=== PATIENT | male | born 1970 | race Caucasian/White ===

== ENCOUNTER 2021-11-09 19:34 | Emergency (ER) | payer SELFPAY ==
[~2021-11-09] VITALS: Ht 185.4 cm; Wt 113.4 kg
[2021-11-09 19:39] VITALS: BP 128/74
--- NOTE | 2021-11-09 19:44 | NUR ---
BIBA TAKEN TO BED #7
--- NOTE | 2021-11-09 20:32 | NUR ---
51 YO M BIBA FROM STREETS C/O ATLERED. UNKNOWN IF BEHAVIORAL OR DRUGS/ETOH. PT FOUND LOOKIGN THROUGH [employer]. PT SELECTIVELY ANSWERS QUESTIONS. PT HAD A CALM DEMEANOR,AFTER A FEW QUESTION PT BEGAN SPEAKING AND ACTING AGGRESSIVE. PT DENIES THOUGHTS OF HURTING SELF AND OTHERS. PT STATES "IM JUST IN A BAD STATE RIGHT NOW YOUT KNOW". ASKED PT ABOUT DRUG AND ALCOHOL USE, PT STATES "YEAH I DO ALL THAT GOOD STUFF". PT DENIES HX, RX AND ALLERGIES
[2021-11-09] MEDS ORDERED: MIDAZOLAM 2 MG/2 ML VIAL IM ONE (21:00)
[2021-11-09] MEDS ORDERED: HALOPERIDOL IM 5 MG/ML VIAL IM ONE (21:00)
--- NOTE | 2021-11-09 21:21 | NUR ---
ATTEMPTED TO PERFORM EKG ON PT. PT REFUSED THE EKG TESTING AND BECAME VERY AGGRESSIVE. ERMD NOTFIED.
[2021-11-09 22:01] LABS: BASOPHILS # (AUTO) 0.1 K/uL (0.00-0.22); BASOPHILS % (AUTO) 0.6 % (0.0-2.0); EOSINOPHILS % (AUTO) 0.4 % (0.0-4.0); HEMATOCRIT 38.2 % (36-52); LYMPHOCYTES # (AUTO) 2.4 K/uL (2.0-11.5); LYMPHOCYTES % (AUTO) 22.7 % (20.5-51.1); MEAN CORPUSCULAR HEMOGLOBIN 30 pg (27-31); MEAN CORPUSCULAR HGB CONC 34 g/dL (33-37); MEAN CORPUSCULAR VOLUME 87.9 fL (80-94); MONOCYTES # (AUTO) 0.9 K/uL (0.8-1.0); MONOCYTES % (AUTO) 8.8 % (1.7-9.3); NEUTROPHILS % (AUTO) 67.5 % (42.2-75.2); PLATELET COUNT (AUTO) 233 K/uL (140-450); RED BLOOD CELL COUNT(AUTO) 4.35 MIL/uL (4.20-6.10); WHITE BLOOD COUNT (AUTO) 10.4 K/uL (4.8-10.8)
[2021-11-09 22:22] LABS: ALBUMIN 3.6 g/dL (3.4-5.0); ANION GAP 13.2 (8-16); ASPARTATE AMINOTRANSFERASE 100 U/L (15-37); CARBON DIOXIDE 29.2 mmol/L (21-32); CHLORIDE 101 mmol/L (98-107); CREATININE 1.3 mg/dL (0.6-1.3); GFR ARICAN-AMERICAN 75 mL/min (>90); GLUCOSE 117 mg/dL (74-106); SODIUM SERUM 141 mmol/L (136-145); THYROID STIMULATING HORMONE 1.14 uIU/mL (0.34-3.74); TOTAL BILIRUBIN 0.7 mg/dL (0.0-1.0); UREA NITROGEN, BLOOD 13 mg/dL (7-18)
[2021-11-09 22:27] LABS: ACETAMINOPHEN < 0.5 ug/ml (10-30); POTASSIUM 2.4 mmol/L (3.5-5.1); SALICYLATE < 2.8 mg/dL (2.8-20.0)
--- NOTE | 2021-11-09 22:34 | NUR ---
SWAB COLLECTED TAKEN TO LAB.
[2021-11-09] MEDS ORDERED: POTASSIUM CHL 20 MEQ/NACL 0.9% 1,000 ML IV ONE (22:35)
--- NOTE | 2021-11-09 22:45 | NUR ---
PT TAKEN TO CT VIA CLY[facility]
--- NOTE | 2021-11-10 02:17 | NUR ---
IV TO LEFT HAND 20G ESTAB. URINE COLLECTED TAKEN TO LAB. PT GIVEN 3 CUPS OF WATER PER REQUEST
[2021-11-10 02:19] LABS: APPEARANCE,URINE CLEAR (CLEAR); BILIRUBIN,URINE 1+ (NEGATIVE); BLOOD, URINE NEGATIVE (NEGATIVE); COLOR,URINE DARK YELLOW (YELLOW); LEUKOCYTE ESTERASE ,URINE NEGATIVE (NEGATIVE); NITRITE, URINE NEGATIVE (NEGATIVE); PH,URINE 5.5 (5.0-9.0); UGLUCOSE NEGATIVE (NEGATIVE)
[2021-11-10] MEDS ORDERED: diphenhydrAMINE 50 MG/ML VIAL IVP ONE (02:25)
[2021-11-10 02:54] LABS: BARBITURATE, URINE NEGATIVE ng/ml (NEG <=200); BENZODIAZEPINE, URINE NEGATIVE ng/mL (NEG <=200); CANNABINOID, URINE POSITIVE ng/mL (NEG <=50); COCAINE, URINE POSITIVE ng/mL (NEG <=300); OPIATE, URINE NEGATIVE ng/mL (NEG <=2000); PHENCYCLIDINE SCREEN,URINE NEGATIVE ng/mL (NEG <=25)
--- NOTE | 2021-11-10 03:38 | NUR ---
PT APPEARS TO BE RESTING IN UPRIGHT POSITION, EQUAL RISE AND FALL OF CHEST WALL. OPENS EYES TO SOUND. ALL NEEDS MET AT THIS TIME TIME. BED LOCKED INLOWEST POSITION, SIDE RAILS X2 FOR SAFETY.
--- NOTE | 2021-11-10 07:01 | NUR ---
PT APPEARS TO BE RESTING , EQUAL RISE AND FALL OF CHEST WALL. OPENS EYES TO SOUND. ALL NEEDS MET AT THIS TIME TIME. BED LOCKED INLOWEST POSITION, SIDE RAILS X2 FOR SAFETY.
--- NOTE | 2021-11-10 07:27 | NUR ---
Beth martin in ED - 11/10/21 at 0728 by LYNNE Pt report given to rozina deng. Transfer of care at this time.
--- NOTE | 2021-11-10 07:28 | NUR ---
Pt report given to rozina deng. Transfer of care at this time.
--- NOTE | 2021-11-10 09:24 | NUR ---
51YR OLD MALE C/O ALOC . PT POSITIVE FOR COCAINE CANNABIS, AMPTHETAMINES. PT IS ASLEEP VS WNL . PT IS A&OX4. SKIN WARM DRY . RESP EVEN AND UNLABORED. SP02 3L 96%. BED AT LOWEST POSITION . SIDE RAILS UP X2 NKDA UNKNOWN
[2021-11-10 11:09] VITALS: BP 131/79
--- NOTE | 2021-11-10 11:09 | NUR ---
Patient discharged with v/s stable. Written and verbal after care instructions given and explained. Patient alert, oriented and verbalized understanding of instructions. [g ED.DCMODE] with [g ED.D/CMODE]. All questions addressed prior to discharge. ID band removed. Patient advised to follow up with PMD. Rx of [] given. Patient educated on indication of medication including possible reaction and side effects. Opportunity to ask questions provided and answered.
--- NOTE | 2021-11-10 11:10 | NUR ---
Chart checked and completed. The patient's care was reviewed and supervised by Shirin Choudhary RN.
== END 2021-11-10 11:09 | disposition home or self-care (01) ==
LOC: MED 19:34
DX: F29 Unspecified psychosis not due to a substance or known physiological condition (principal); Z20.822 Contact with and (suspected) exposure to COVID-19; F91.1 Conduct disorder, childhood-onset type; R41.82 Altered mental status, unspecified
CPT/HCPCS: 36415; 70450; 80053; 80305; 81003; 84443; 84484; 85025; 87426; 93005; 96361; 96372; 96374; 99285; G0480; G0482; J1200; J1630; J2250; J7030